=== PATIENT | female | born 1945 | race Caucasian/White ===

== ENCOUNTER 2024-09-12 06:11 | Day surgery (SDC) | payer OTHER ==
[~2024-09-12] VITALS: Ht 160 cm; Wt 95.4 kg
[~2024-09-12 06:11] MED LIST: ATOR1TAB21 PO; GLIP5TAB17 PO; HYDR2TAB2 PO; JARD1TAB3 PO; LOSA100T46 PO; METF10004 PO; METO1TAB32 PO; ONDA-84 PO; TAMS1CAP17 PO
[2024-09-12] MEDS ORDERED: LIDOCAINE 2% 100MG/5ML SDV (FOR ANES.) As Ordered ONE (06:58)
[2024-09-12] MEDS ORDERED: propofoL 200 MG/20 ML VIAL As Ordered ONE (06:58)
[2024-09-12] MEDS ORDERED: dexmedeTOMIDine (4MCG/ML)200MCG/50ML BTL (PRECEDEX) As Ordered ONE (06:58)
[2024-09-12] MEDS ORDERED: ONDANSETRON 4MG 2ML VIAL As Ordered ONE (06:58)
[2024-09-12] MEDS ORDERED: VASOPRESSIN INJ 20UNITS/ML 1ML VIAL As Ordered ONE (06:59)
[2024-09-12] MEDS ORDERED: fentaNYL 100 MCG/2 ML INJECTION As Ordered ONE (07:05)
[2024-09-12] MEDS ORDERED: NS 1,000 ML IV SCH ×2 (07:05→08:35)
[2024-09-12] MEDS: ceFAZolin SOD 2 GM in IV 1 EA IV ONE (07:33)
[2024-09-12] MEDS: ISOVUE-300 61% 100ML VIAL As Ordered ONE (08:10)
[2024-09-12] MEDS ORDERED: ACETAMINOPHEN 1000MG 100ML IV BAG As Ordered ONE (08:32)
[2024-09-12] MEDS ORDERED: fentaNYL 100 MCG/2 ML INJECTION IV PRN (08:35)
[2024-09-12] MEDS ORDERED: oxyCODONE 5MG TAB PO PRN (08:35)
[2024-09-12] MEDS ORDERED: ONDANSETRON 4MG 2ML VIAL IV PRN (08:35)
[2024-09-12] MEDS ORDERED: HYDROMORPHONE HCL 0.5 MG/ 0.5 ML SYRINGE IV PRN (08:35)
[2024-09-12] MEDS ORDERED: PYRI1TAB5 PO (08:47)
[2024-09-12] MEDS ORDERED: MACR100C43 PO (08:47)
[2024-09-12] MEDS ORDERED: OXYB5TAB14 PO (08:47)
[2024-09-12 10:30] VITALS: BP 150/90; TEMP 97.4; O2SAT 95
== END 2024-09-12 10:30 | disposition home or self-care (01) ==
LOC: M SDC 06:11
PROVIDERS: ATTEND Urology
DX: N20.0 Calculus of kidney (principal); I10 Essential (primary) hypertension; E78.5 Hyperlipidemia, unspecified; E11.9 Type 2 diabetes mellitus without complications; F32.A Depression, unspecified; M54.9 Dorsalgia, unspecified; K59.00 Constipation, unspecified; Z79.84 Long term (current) use of oral hypoglycemic drugs; Z79.899 Other long term (current) drug therapy
CPT/HCPCS: 52356; 76000; 82365; C1769; C1894; C2617; J0131; J0690; J1100; J2405; J2598; J3010; Q9967